=== PATIENT | female | born 1945 | race Caucasian/White ===

== ENCOUNTER 2017-02-21 11:48 | Observation (INO) | payer OTHER ==
[~2017-02-21 11:48] MED LIST: ceFAZolin 2 GM/DEXTROSE 100 ML IV ONE
--- NOTE | 2017-02-21 12:39 | PDHPUP ---
History & Physical Update H&P update statement: This history and physical update is based on an assessment of the patient which was completed after admission or registration (within 24 hours), but prior to the surgery/procedure.
[2017-02-21] MEDS ORDERED: LR 1,000 ML IV ONE (12:44)
[2017-02-21] MEDS ORDERED: LIDOCAINE 1% 2 ML INJ ID PRN (12:44)
--- NOTE | 2017-02-21 13:12 | PDANEPAE ---
ANE History of Present Illness 71 yo female for R foot surgery. ANE Past Medical History - Cardiovascular History Hx Hypertension: No Hx Arrhythmias: No Hx Chest Pain: No Hx Coronary Artery / Peripheral Vascular Disease: No Hx CHF / Valvular Disease: No Hx Palpitations: No Cardiovascular History Comment: OCCAS HEART MURMUR - ASYMPTOMATIC - Pulmonary History Hx COPD: No Hx Asthma/Reactive Airway Disease: No Hx Recent Upper Respiratory Infection: No Hx Oxygen in Use at Home: No Hx Sleep Apnea: No Sleep Apnea Screening Result - Last Documented: Negative - Neurologic History Hx Cerebrovascular Accident: No Hx Seizures: No Hx Dementia: No - Endocrine History Hx Diabetes: No Hypothyroid: Yes Endocrine History Comment: HYPOTHYROID - Renal History Hx Renal Disorders: No - Liver History Hx Hepatic Disorders: Yes Hepatic History Comment: OCCAS GALL BLADDER EPISODES. ACUTE PANCREATITIS 2011 - Neurological & Psychiatric Hx Hx Neurological and Psychiatric Disorders: Yes Neurological / Psychiatric History Comment: migraines - Cancer History Hx Cancer: No - Congenital Disorder History Hx Congenital Disorders: No - GI History GERD: mild Hx Gastrointestinal Disorders: No - Other Health History Other Health History: FIBROMYALGIA 2001. OSTEOARTHRITIS - Chronic Pain History Chronic Pain: Yes (FIBROMYALGIA & ARTHRITIS) - Surgical History Prior Surgeries: LT TOTAL KNEE WITH HARDWARE REMVL DONE PRIOR 12/16/2015. NEURECTOMY L CRANIAL. CARPAL TUNNEL R. HYSTERECTOMY. FOOT SURG ROSETTA. RTC REPAIR L. REVISION RTC L. GANGLION CYST. CATARACT ROSETTA. BUNIONECTOMY, NEUROMA L. BICONDYLAR L PLATEAU FX ORIF ANE Review of Systems Review of Systems: no URI/fever x2 weeks - Exercise capacity METS (RN): 4 METS - Systems Cardiac: Reports: no symptoms Respiratory: Reports: no symptoms ANE Patient History - Allergies Allergies/Adverse Reactions: acetaminophen [From Percocet] Adverse Reaction (Verified 02/21/17 13:08) oxycodone [From Percocet] Adverse Reaction (Verified 02/21/17 13:08) Itching - Home Medications Home Medications: B-Complex with Vitamin C [Super B Complex-Vitamin C] 1 each PO DAILY 07/09/15 [ Last Taken 02/12/17] Cyanocobalamin [Vitamin B12 (*)] 1,000 mcg PO DAILY 07/09/15 [Last Taken ] Gabapentin 1,200 mg PO TID 07/09/15 [Last Taken 02/21/17 10:00] Herbals/Supplements -Info Only 2 ea PO DAILY 07/09/15 [Last Taken 02/12/17] Liothyronine Sodium [Cytomel 25 mcg (*)] 25 mcg PO DAILY 07/09/15 [Last Taken 09:00] MILNACIPRAN HCL [Savella 100 mg] 100 mg PO HS 07/09/15 [Last Taken 02/21/17 10: 00] [place]-3 Fatty Acids [Fish Oil 1000 mg (*)] 1,000 mg PO DAILY 07/09/15 [Last Taken 02/12/17] Omeprazole [Prilosec] 40 mg PO DAILY 07/09/15 [Last Taken 02/21/17 10:00] Sumatriptan Succinate [Imitrex] 100 mg PO PRN PRN 07/09/15 [Last Taken 02/19/17] Tramadol HCl [Ultram ER] 200 mg PO DAILY 07/09/15 [Last Taken 02/21/17 11:00] Hydrocodone/Acetaminophen [[place] 5/325 (*)] 1 each PO Q4-6PRN PRN 12/16/15 [ Last Taken 02/20/17 16:30] DULoxetine HS 01/31/17 [Last Taken 02/20/17 22:00] Refresh Classic Eye Drops PRN 01/31/17 [Last Taken Unknown] - NPO status NPO Status: no food or drink >8 hours - Anes Hx Anes Hx: no prior problems - Smoking Hx Smoking Status: Never smoked Marijuana use: No - Alcohol Use Alcohol Use: Rarely - Family Anes Hx Family Anes Hx: none Family Hx Anesthesia Complications: NEG ANE Labs/Vital Signs - Vital Signs Vital Signs: reviewed preoperatively; see RN documention for details Height: 147.32 cm Weight: 49.895 kg ANE Physical Exam - Airway Neck exam: FROM Mallampati Score: Class 2 Mouth exam: normal dental/mouth exam - Pulmonary Pulmonary: clear to auscultation - Cardiovascular Cardiovascular: regular rate and rhythym - ASA Status ASA Status: III ANE Anesthesia Plan Anesthesia Plan: GA with mask Regional Anesthesia: single shot NB, continuous NB
[2017-02-21] MEDS ORDERED: BUPIVACAINE 0.25% 10 ML SDV ONE (13:17)
[2017-02-21] MEDS ORDERED: BUPIVACAINE 0.5% 30 ML SDV ONE ×2 (13:18→14:02)
[2017-02-21] MEDS ORDERED: fentaNYL 100 MCG/2 ML INJ ONE ×3 (13:20→14:18)
[2017-02-21] MEDS ORDERED: DEXAMETHASONE 4 MG/ML VIAL ONE ×2 (13:20→14:19)
[2017-02-21] MEDS ORDERED: MIDAZOLAM 2 MG/2 ML VIAL IVP ONE (14:04)
[2017-02-21] MEDS ORDERED: PROPOFOL 200 MG/20 ML VIAL ONE (14:18)
[2017-02-21] MEDS ORDERED: ROPIVACAINE 0.2% 1,100 MG in PUMP SET 1 EA NB SCH (14:30)
[2017-02-21] MEDS ORDERED: ceFAZolin 2 GM/DEXTROSE 100 ML IV ONE (14:45)
[2017-02-21] MEDS ORDERED: ESMOLOL HCL 100 MG/10 ML VIAL IV ONE (16:11)
[2017-02-21] MEDS ORDERED: ONDANSETRON 4 MG/2 ML VIAL ONE (16:33)
[2017-02-21] MEDS ORDERED: POVIDONE-IODINE 30 GM OINTTUBE TP ONE (16:51)
[2017-02-21] MEDS ORDERED: HYDROmorphONE/DILAUDID 1 MG/ML INJ IVP PRN (17:19)
[2017-02-21] MEDS ORDERED: HYDROCODONE/APAP 5/325 TAB PO PRN (17:19)
[2017-02-21] MEDS ORDERED: ONDANSETRON 4 MG/2 ML VIAL IVP PRN (17:19)
--- NOTE | 2017-02-21 17:19 | POSTOPPROG ---
Post Op Note Date of Operation: 02/21/17 Surgeon: Ron Medina High Density Talc Coater Operator: Elizabeth Anesthesiologist: Jb Anesthesia: GET(General Endotracheal) Pre-op Diagnosis: R foot djd Post-op Diagnosis: same Indication: above Procedure: R subtalar fusion, 1st mtp fusion 2-4 h toes Inf/Abcess present in the surg proc area at time of surgery?: No EBL: 50-100
[2017-02-21] MEDS ORDERED: NS 1,000 ML IV SCH (17:30)
[2017-02-21] MEDS ORDERED: NALOXONE HCL 0.4 MG/ML INJ IVP PRN (18:24)
[2017-02-21] MEDS ORDERED: fentaNYL 100 MCG/2 ML INJ IVP PRN (18:24)
--- NOTE | 2017-02-21 18:25 | POSTANESTH ---
Post Anesthetic Evaluation Cardiovascular Status: Normal, Stable Respiratory Status: Normal, Stable Level of Consciousness/Mental Status: Can Participate in Eval Pain Control: Adequate, Prn Tx Ordered Nausea/Vomiting Control: Adequate, Prn Tx Ordered Complications Possibly Related to Anesthesia: None Noted
[2017-02-21] MEDS: HYDROmorphONE/DILAUDID 2 MG TAB PO PRN (20:23)
[2017-02-21 21:00] VITALS: RESP 16
[2017-02-21] MEDS: ceFAZolin 2 GM/DEXTROSE 100 ML IV SCH (22:22)
[2017-02-22] MEDS: HYDROmorphONE/DILAUDID 2 MG TAB PO PRN (03:15)
[2017-02-22 04:46] VITALS: TEMP 98.7; O2SAT 95
--- NOTE | 2017-02-22 05:26 | GOP ---
[f rep st] OPERATIVE REPORT DATE OF OPERATION: 02/21/2017 SURGEON: Ron Medina MD RFP WRITER: Vitaly Johnson SA. ANESTHESIA: General. 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 PROCEDURE PERFORMED: 1. Right subtalar fusion. 2. Right 1st MTP fusion. 3. Right 2 and 3 metatarsal capsulotomies. 4. Right 2, 3, and 4 hammertoe corrections. 5. Right 4th toe callus debridement. FINDINGS: SPECIMENS: None. ESTIMATED BLOOD LOSS: 50 mL. INDICATIONS: This is a 71-year-old female with severe foot deformity. I had done a similar procedure on her left foot, she did well, and wishes to have the right corrected. We did discuss the risks of vascular compromise, wound complications, incorrect position of fusion, malunion, nonunion, continued pain , ulcerations, deformity, and she elected to proceed. Informed consent obtained and questions answers. She was marked preoperatively. DESCRIPTION OF PROCEDURE: The patient was taken to the operative suite, after a block administered per Anesthesia. She was given 2 g of Ancef. Sterilely prepped and draped in normal fashion. Time-out was performed verifying the site , side, and location and agreed upon by all members of the team. I debrided with a knife the callus at the tip of her 4th toe and parred his back. I then changed the towels and the instruments. I then did an Esmarch and inflated the tourniquet. Incision was made over the subtalar joint. I dissected down to this and mobilized the joint. This was arthritic in nature. I debrided the joint and prepared this with a combination of chisels, K-wires, saws. I pinned the joint in the position of fusion and checked this radiographically. I and then placed a 7-0 headless compression screw across this after drilling in a 5 0 headless compression derotation screw across the drilling. I liked the final position of the fusion and the implants, and kept this construct. I moved on and exposed the 1st MTP protecting the EHL tendon, and this was extremely arthritic and deformed. I debrided this. I exposed all the hammertoes of the 2, 3, and 4 at the PIP joint as well as performed capsulotomies of the MTP 2 and 3 joints by performing incision there and dissecting down and releasing lateral capsule. I prepared the 1st MTP joint for fusion with matching reamers after pinning to this, then further prepared the joint for fusion. I then resected the hammertoes with the sagittal saw on the proximal phalanx of 2, 3, and mallet toe 4. I then pinned the 2nd toe antegrade then retrograde and checked this fluoroscopically. I then pinned the 1st MTP in the position of fusion, checked this fluoroscopically. Drilled and placed the headless compression screw and checked the skin fluoroscopically. Placed the plate on this. Checked its position. I then placed locking screws distally. I used a compression screw in the slot to move this into some compression proximally, and I then placed locking screws in this to hold the stable construct, and checked this position clinically with a flat plate, as well as radiographically and liked it. I then pinned the 3rd foot 4th toes as well, checking their alignment checked on fluoroscopically the pins. Tourniquet was deflated. Hemostasis was obtained. Was closed with #1 Vicryl, 0 Vicryl, 2-0 Vicryl, 3-0 and 4-0 nylon, as well as 3 -0 Quill in the hind foot, and Dermabond. 2-0 nylon was used for the heel wound. Was placed in a sterile dressing and splint. Taken to PACU in stable condition. IMPLANTS: Arthrex 7.0 and 5.0 headless compression screws, as well as a 3.5 headless compression screw and MTP plate and screws in the MTP joint of the 1st , and K-wires. COMPLICATIONS: None. DRAINS: None. CONDITION: Stable. /[id number]/MODL MTDD
[2017-02-22] MEDS: ceFAZolin 2 GM/DEXTROSE 100 ML IV SCH (05:37)
[2017-02-22] MEDS ORDERED: SUMAtriptan 50 MG TAB PO PRN (06:44)
[2017-02-22 08:14] VITALS: BP 147/56; PULSE 61
[2017-02-22] MEDS ORDERED: ENOXAPARIN 40 MG/0.4 ML SYR SC SCH (09:00)
--- NOTE | 2017-02-22 13:50 | ASMTCMCOM ---
CM Note CM Note Notes: Reviewed chart, PT recommending home with initial supervision and out pt PT. Met w/pt and Rony who will be at home w/pt. Pt does not feel need for hhc and will f/u w/ out pt PT. No other dc needs at this time. Date Signed: 02/22/2017 01:50 PM Electronically Signed By:Porsche Alexandre RN
--- NOTE | 2017-02-22 15:23 | SOAPPROG ---
SOAP Progress Note Assessment/Plan: Assessment: R foot fusion 2-4 h toes Plan: NWB RLE elevat ice Asprin 325 po q day for dvt prophalaxsis 02/22/17 15:21 Subjective: min pain Objective: Vital Signs Temp Pulse Resp BP Pulse Ox 37.1 C 61 16 147/56 H 95 02/22/17 04:42 02/22/17 08:00 02/22/17 08:00 02/22/17 08:00 02/22/17 08:00 02/21/17 02/22/17 02/23/17 05:59 05:59 05:59 Intake Total 3100 Output Total 1170 550 Balance 1930 -550 splint cdi ICD10 Worksheet Patient Problems: Problems Problem Status Onset Total knee replacement status Acute
--- NOTE | 2017-02-22 16:38 | ASDISCHSUM ---
Discharge Information Plan Status:Home with No Needs Medically Cleared to Leave: Discharge Date:02/22/2017 04:28 PM CM D/C Disposition:Home, Routine, Self-Care ADT D/C Disposition:Home, Routine, Self-Care Projected Discharge Date:02/22/2017 04:28 PM Transportation at D/C: Discharge Delay Reason: Follow-Up Date:02/22/2017 04:28 PM Discharge Slot: Final Diagnosis: Placement Information Patient Contact Information Contact Name:JULISA Relationship: Address:[address] City:[place] Alternate Phone: [facility]/Zip Code:[place] [address] Email: Financial Information Financial Class: Primary Plan Desc:MEDICARE OUTPATIENT Primary Plan Number:[id number] Secondary Plan Desc:[employer] Secondary Plan Number:[id number] Assessment Information [facility] CM Progress Note CM Note CM Note Notes: Reviewed chart, PT recommending home with initial supervision and out pt PT. Met w/pt and Rony who will be at home w/pt. Pt does not feel need for hhc and will f/u w/ out pt PT. No other dc needs at this time. Date Signed: 02/22/2017 01:50 PM Electronically Signed By:Porsche Alexandre RN Intervention Information Intervention Type:*PABLITO-Signed Date of Service:02/22/2017 09:35 AM Patient Type:Observation Staff Member:Barb Denis Hours: Discipline: Severity: Comment:
--- NOTE | 2017-02-22 18:03 | GDS ---
[f rep st] DISCHARGE SUMMARY PREOPERATIVE DIAGNOSES: Right foot subtalar degenerative joint disease, 1st metatarsophalangeal dege nerative joint disease, 2 through 4 hammertoes. REASON FOR HOSPITALIZATION: She was admitted after surgery for the above with a right subtalar fusio n, 1st MTP fusion, 2 through 4 hammertoe corrections. She did well. Her pain was controlled and she was able to clear therapy. CONDITION: At discharge was stable. PROCEDURES: Are as above. CONSULTING PHYSICIANS: None. DISPOSITION: Home. DIET: She is on a regular diet. DISCHARGE MEDICATIONS: She is sent home with prescriptions for hydrocodone and Ultram for pain as we ll as instructions to take an aspirin 325 mg p.o. daily for 4 weeks for DVT prophylaxis. DISCHARGE INSTRUCTIONS: She will wear MARII hose. She will ice and elevate her leg. She will come ba ck to the clinic in a week to see me. She will call or come back to the hospital if she has any ches t pain, shortness of breath or other concerns. /[id number]/MODL
== END 2017-02-22 16:28 | disposition home or self-care (01) ==
LOC: FSGY 11:48 → F3N 17:19
PROVIDERS: ADMIT Orthopaedic Surgery; ATTEND Orthopaedic Surgery
PROC: 0QBQ0ZZ Excision of Right Toe Phalanx, Open Approach (ICD-10-PCS; principal; 2017-02-21 13:00)
PROC: 0SGH04Z Fusion of Right Tarsal Joint with Internal Fixation Device, Open Approach (ICD-10-PCS; principal; 2017-02-21 13:00)
PROC: 0SGM04Z Fusion of Right Metatarsal-Phalangeal Joint with Internal Fixation Device, Open Approach (ICD-10-PCS; principal; 2017-02-21 13:00)
DX: M19.071 Primary osteoarthritis, right ankle and foot (principal); M20.11 Hallux valgus (acquired), right foot; M20.41 Other hammer toe(s) (acquired), right foot; L84 Corns and callosities; E03.9 Hypothyroidism, unspecified
CPT/HCPCS: 28285; 28725; 28750; 97161; 97165; C1713; C1769; G8978; G8979; G8980; G8987; G8988; G8989; J0690; J1100; J1650; J2250; J2405; J2704; J2795; J3010

== ENCOUNTER 2018-08-31 05:51 | Observation (INO) | payer OTHER ==
[2018-08-31] MEDS ORDERED: LR 1,000 ML IV ONE (06:13)
[2018-08-31] MEDS ORDERED: fentaNYL 100 MCG/2 ML INJ ONE (06:41)
--- NOTE | 2018-08-31 06:41 | PDANEPAE ---
ANE History of Present Illness right foot pain ANE Past Medical History - Cardiovascular History Hx Hypertension: No Hx Arrhythmias: No Hx Chest Pain: No Hx Coronary Artery / Peripheral Vascular Disease: No Hx CHF / Valvular Disease: No Hx Palpitations: No Cardiovascular History Comment: OCCAS HEART MURMUR - ASYMPTOMATIC - Pulmonary History Hx COPD: No Hx Asthma/Reactive Airway Disease: No Hx Recent Upper Respiratory Infection: No Hx Oxygen in Use at Home: No Hx Sleep Apnea: No Sleep Apnea Screening Result - Last Documented: Negative - Neurologic History Hx Cerebrovascular Accident: No Hx Seizures: No Hx Dementia: No - Endocrine History Hx Diabetes: No Hypothyroid: Yes Hyperthyroid: No Obesity: no Endocrine History Comment: HYPOTHYROID - Renal History Hx Renal Disorders: No - Liver History Hx Hepatic Disorders: Yes Hepatic History Comment: OCCAS GALL BLADDER EPISODES. ACUTE PANCREATITIS 2011 - Neurological & Psychiatric Hx Hx Neurological and Psychiatric Disorders: Yes Neurological / Psychiatric History Comment: migraines - Cancer History Hx Cancer: No - Congenital Disorder History Hx Congenital Disorders: No - GI History Hx Gastrointestinal Disorders: Yes - Other Health History Other Health History: FIBROMYALGIA 2001. OSTEOARTHRITIS - Chronic Pain History Chronic Pain: Yes (FIBROMYALGIA & ARTHRITIS) - Surgical History Prior Surgeries: LT TOTAL KNEE WITH HARDWARE REMVL DONE PRIOR 12/16/2015. NEURECTOMY L CRANIAL. CARPAL TUNNEL R. HYSTERECTOMY. FOOT SURG RSOETTA. RTC REPAIR L. REVISION RTC L. GANGLION CYST. CATARACT ROSETTA. BUNIONECTOMY, NEUROMA L. BICONDYLAR L PLATEAU FX ORIF ANE Review of Systems Review of systems is: negative Review of Systems: - Exercise capacity Exercise capacity: >=4 METS METS (RN): 4 METS ANE Patient History - Allergies Allergies/Adverse Reactions: acetaminophen [From Percocet] Allergy (Verified 02/21/17 14:07) morphine Allergy (Verified 08/31/18 06:18) oxycodone [From Percocet] Allergy (Verified 02/21/17 14:07) Itching - Home Medications Home medications: home medication list seen and reviewed Home Medications: B-Complex with Vitamin C [Super B Complex-Vitamin C] 1 each PO DAILY 07/09/15 [ Last Taken 08/30/18] Cyanocobalamin [Vitamin B12 (*)] 1,000 mcg PO DAILY 07/09/15 [Last Taken ] Gabapentin 1,200 mg PO TID 07/09/15 [Last Taken 08/30/18] Herbals/Supplements -Info Only 2 ea PO DAILY 07/09/15 [Last Taken 02/12/17] Liothyronine Sodium [Cytomel 25 mcg (*)] 25 mcg PO DAILY 07/09/15 [Last Taken ] MILNACIPRAN HCL [Savella 100 mg] 100 mg PO DAILY 07/09/15 [Last Taken 08/30/18] [place]-3 Fatty Acids [Fish Oil 1000 mg (*)] 1,000 mg PO DAILY 07/09/15 [Last Taken 08/30/18] Omeprazole [Prilosec] 40 mg PO DAILY 07/09/15 [Last Taken 08/24/18] Sumatriptan Succinate [Imitrex] 100 mg PO PRN PRN 07/09/15 [Last Taken 08/28/18] DULoxetine [Cymbalta 30 MG (*)] 90 mg PO HS 08/15/18 [Last Taken 08/30/18] Hydrocodone/APAP 5/325 [[place] 5/325 (*)] 1 each PO DAILY PRN 08/15/18 [Last Taken 08/30/18] cycloSPORINE 0.05% [Restasis Opht Drops(*)] 1 drop EACHEYE BID 08/15/18 [Last Taken 08/31/18] - NPO status NPO Status: no food or drink >8 hours NPO Since - Liquids (Date): 08/30/18 NPO Since - Liquids (Time): 23:00 NPO Since - Solids (Date): 08/30/18 NPO Since - Solids (Time): 19:00 - Anes Hx Anes Hx: no prior problems - Smoking Hx Smoking Status: Never smoked - Family Anes Hx Family Hx Anesthesia Complications: NEG ANE Labs/Vital Signs - Vital Signs Vital Signs: reviewed preoperatively; see RN documention for details Blood Pressure: 143/75 Heart Rate: 76 Respiratory Rate: 18 O2 Sat (%): 97 Height: 149.86 cm Weight: 50.802 kg ANE Physical Exam - Airway Neck exam: FROM Mallampati Score: Class 2 Mouth exam: normal dental/mouth exam - Pulmonary Pulmonary: no respiratory distress - Cardiovascular Cardiovascular: regular rate and rhythym - ASA Status ASA Status: II ANE Anesthesia Plan Anesthesia Plan: general endotracheal anesthesia Regional Anesthesia: continuous NB (popliteal catheter)
[2018-08-31] MEDS ORDERED: ROPIVACAINE HCL 150 MG/30 ML INJ ONE (06:42)
[2018-08-31] MEDS ORDERED: THROMBIN (BOVINE) 5,000 UNIT VIAL TP ONE (06:58)
[2018-08-31] MEDS ORDERED: ceFAZolin 2 GM/DEXTROSE 100 ML IV ONE (06:58)
--- NOTE | 2018-08-31 06:58 | PDHPUP ---
History & Physical Update H&P update statement: This history and physical update is based on an assessment of the patient which was completed after admission or registration (within 24 hours), but prior to the surgery/procedure. H&P update: H&P reviewed & patient examined, no change in patient's condition since H&P completed
[2018-08-31] MEDS ORDERED: HEPARIN 10,000 UNIT/10 ML MDV (1,000 UNIT/ML) ONE (07:08)
[2018-08-31] MEDS ORDERED: PROPOFOL 200 MG/20 ML VIAL ONE (07:13)
[2018-08-31] MEDS ORDERED: ROCURONIUM 50 MG/5 ML VIAL ONE (07:14)
[2018-08-31] MEDS ORDERED: DEXAMETHASONE 4 MG/ML VIAL ONE (08:57)
[2018-08-31] MEDS ORDERED: ONDANSETRON 4 MG/2 ML VIAL ONE ×2 (08:57→09:34)
[2018-08-31] MEDS ORDERED: ROPIVACAINE 0.2% 1,100 MG in PUMP SET 1 EA NB SCH (09:00)
[2018-08-31] MEDS ORDERED: MEPERIDINE 25 MG/0.5 ML AMP IVP PRN (09:06)
[2018-08-31] MEDS ORDERED: PROMETHAZINE HCL 25 MG/ML INJ IVP PRN (09:06)
[2018-08-31] MEDS ORDERED: LR 500 ML IV PRN (09:06)
[2018-08-31] MEDS ORDERED: METOCLOPRAMIDE 10 MG/2 ML VIAL IVP PRN (09:06)
[2018-08-31] MEDS ORDERED: ALBUTEROL 3 ML DEYVIAL IH PRN (09:06)
[2018-08-31] MEDS ORDERED: DEXAMETHASONE 4 MG/ML VIAL IVP PRN (09:06)
[2018-08-31] MEDS ORDERED: ONDANSETRON 4 MG/2 ML VIAL IVP PRN ×2 (09:06→09:32)
[2018-08-31] MEDS ORDERED: LABETALOL HCL 5 MG/ML 20 ML MDV IVP PRN (09:06)
[2018-08-31] MEDS ORDERED: HYDROmorphONE/DILAUDID 1 MG/ML INJ IVP PRN (09:06)
[2018-08-31] MEDS ORDERED: NALOXONE HCL 0.4 MG/ML INJ IVP PRN (09:06)
[2018-08-31] MEDS ORDERED: DIAZEPAM 10 MG/2 ML SYR IVP PRN (09:06)
[2018-08-31] MEDS ORDERED: fentaNYL 100 MCG/2 ML INJ IVP PRN (09:06)
[2018-08-31] MEDS ORDERED: HYDROCODONE/APAP 5/325 TAB PO PRN (09:32)
[2018-08-31] MEDS ORDERED: ONDANSETRON DISINTEGRATING 4 MG TAB PO PRN (09:32)
[2018-08-31] MEDS ORDERED: PROMETHAZINE HCL 25 MG/ML INJ ONE (09:34)
--- NOTE | 2018-08-31 10:36 | GOP ---
[f rep st] OPERATIVE REPORT DATE OF OPERATION: 08/31/2018 SURGEON: Ron Medina MD [employer]ERTY INS[employer]ANCE CLAIMS EXAMINER: Wang Suggs MD ANESTHESIA: General with indwelling popliteal block for postop pain control. PREOPERATIVE DIAGNOSIS: Right subtalar nonunion, right subtalar retained hardware. POSTOPERATIVE DIAGNOSIS: Right subtalar nonunion, right subtalar retained hardware. PROCEDURE PERFORMED: 1. Right bone marrow aspirate of iliac crest. 2. Right subtalar hardware removal. 3. Right subtalar revision fusion with bone graft and bone marrow aspirate. FINDINGS: SPECIMENS: None. ESTIMATED BLOOD LOSS: 60 cc. INDICATIONS: This is a female who I previously performed bilateral subtalar fusions on. She went on not to fuse the right. We obtained multiple CT scans showing it did not heal. She elected for revi dony surgery. We discussed using bone marrow aspirate and allograft to augment this. We discussed n onoperative treatment as well, but she failed this. She was consented. We discussed risks of anothe r nonunion, continued pain, joint problems, hardware problems and further fusions, arthritis, complic ations with the bone marrow aspirate, including blood clot, vessel injury, nerve injury, and she elec anna to proceed. Informed consent obtained. All questions answered. She was marked preoperatively. DESCRIPTION OF PROCEDURE: She was taken to the operative suite and anesthesia was induced, block adm inistered preop. I prepped out her posterior iliac crest and aspirated 60 cc of bone marrow aspirate out of her posterior ilium at the PSIS. This was then Dermabonded and sealed. We positioned her, p repped and draped in normal fashion. Another time-out was performed verifying this patient, side, si te, location; there was agreement by everyone on the team. I made the old incision and exposed the subtalar joint. This was clearly not healed. I then made th e incision in the heel and extended this. I found the old screws with guidewires and removed these. I opened up and mobilized subtalar joint. There was only scant amount of fibrous tissue, but this w as debrided. I re-prepped the joint, taking care to be extra thorough and removing all subchondral b one. There was no intra-articular cartilage was left from prior. I then fenestrated the bone. I th en repositioned the joint, held this compression, opened the joint back up, and placed the bone spong e from Arthrex with insertion of iliac crest aspirate, as well as a cc of bone graft that had been so aked in iliac crest aspirate. We reduced the joint, placed guide pins across this, checked this fluo roscopically, drilled and placed a 7-hole headless compression screws, achieving compression of the j oint and good stable fixation. I then added another cc of bone graft to the lateral edge in sinus ta rsi. She was closed with 0 Vicryl, 2-0 Vicryl, 3-0 Quill, and Dermabond. The rest of the iliac jean t was aspirated injected in the subtalar joint and sinus tarsi after closure. She was then taken to PACU in stable condition in splint. IMPLANTS: Two Arthrex 7.0 headless compression screws. COMPLICATIONS: None. DRAINS: None. CONDITION: Stable. /[id number]/MODL
[2018-08-31] MEDS ORDERED: SUMAtriptan 50 MG TAB PO PRN (10:45)
[2018-08-31] MEDS: IBUPROFEN 600 MG TAB PO SCH ×2 (17:25→22:50)
[2018-08-31] MEDS: GABAPENTIN 400 MG CAP PO SCH ×2 (17:25→22:49)
[2018-08-31] MEDS ORDERED: DULoxetine 30 MG CAP PO SCH (21:00)
[2018-08-31] MEDS: cycloSPORINE 0.05% 30 DROPERETTE/BOX EACHEYE SCH (22:49)
[2018-08-31] MEDS: NYSTATIN SUSP 500000 UNIT/5 ML UD LIQ PO SCH (22:53)
[2018-09-01] MEDS: NYSTATIN SUSP 500000 UNIT/5 ML UD LIQ PO SCH ×2 (05:22→10:30)
[2018-09-01] MEDS ORDERED: PANTOPRAZOLE SODIUM 40 MG TAB PO SCH (09:00)
[2018-09-01] MEDS ORDERED: Milnacipran Hcl [Savella] 100 MG PO SCH (09:00)
[2018-09-01] MEDS ORDERED: B COMPLEX WITH VITAMIN C PO SCH (09:00)
[2018-09-01] MEDS ORDERED: LIOTHYRONINE SODIUM 25 MCG TAB PO SCH (09:00)
[2018-09-01] MEDS ORDERED: CYANO/VITAMIN B12 1000 MCG TAB PO SCH (09:00)
[2018-09-01] MEDS: GABAPENTIN 400 MG CAP PO SCH (10:30)
[2018-09-01] MEDS: IBUPROFEN 600 MG TAB PO SCH (10:30)
--- NOTE | 2018-09-01 10:52 | SOAPPROG ---
SOAP Progress Note Assessment/Plan: Assessment:minimal pain Plan:continue popliteal catheter on discharge, discharge instructions given 09/01/18 10:51 Objective: Vital Signs Temp Pulse Resp BP Pulse Ox 37.0 C 86 17 142/77 H 98 09/01/18 07:04 09/01/18 07:04 09/01/18 07:04 09/01/18 07:04 09/01/18 07:04 08/31/18 09/01/18 09/02/18 05:59 05:59 05:59 Intake Total 2500 Output Total 3860 600 Balance -1360 -600 - Time Spent With Patient Time Spent With Patient: 5 min - Pending Discharge Pending Discharge Within 24 Hours: Yes Pending Discharge Date: 09/02/18 Pending Discharge Time: 11:00 Physical Exam - Physical Exam General Appearance: WD/WN EENT: PERRL/EOMI Neck: non-tender, full range of motion, supple, normal inspection Cardiac/Chest: normal peripheral pulses, regular rate, rhythm Pelvic Exam: deferred Rectal: deferred Skin: normal color, warm/dry Lymphatic: no adenopathy Extremities: normal range of motion, non-tender, normal inspection, normal capillary refill Neuro/Psych: no motor/sensory deficits, alert, normal mood/affect, oriented x 3 ICD10 Worksheet Patient Problems: Problems Problem Status Onset Total knee replacement status Acute
[2018-09-01 11:15] VITALS: BP 127/63
[2018-09-01] MEDS: cycloSPORINE 0.05% 30 DROPERETTE/BOX EACHEYE SCH (12:05)
--- NOTE | 2018-09-01 14:05 | SOAPPROG ---
REINIER Progress Note Assessment/Plan: Assessment: 73 y/o female s/p revision of right subtalar joint fusion. Plan: D/C planning today indwelling catheter to stay per anesthesia NWB on RLE with PT/OT Pain Control DVT PPx Jamil Stockings and ASA 81mg 09/01/18 14:00 Subjective: 73 y/o female who is POD#1 from a Right subtalar revision. She is overall feeling wonderful and is anxious to go home today. She has no complaints at this time and states she has been feeling well since she was in the PACU. She is not having any pain and denies any fever, chills, SOB, CP, abdominal pain, nausea, vomiting. Objective: 73 y/o female POD#1 AOx4 NAD Dressing is in place which is clean, dry and intact. Catheter pump in place which shows no signs of any erythema, ecchymosis. Dressing surrounding is C/D/I able to wiggle toes <2 capillary refill Neurologically intact to light sensation Negative contralateral Homans Vital Signs Temp Pulse Resp BP Pulse Ox 37.0 C 88 16 127/63 H 95 09/01/18 11:14 09/01/18 11:14 09/01/18 11:14 09/01/18 11:14 09/01/18 11:14 08/31/18 09/01/18 09/02/18 05:59 05:59 05:59 Intake Total 2500 500 Output Total 3860 600 Balance -1360 -100 - Time Spent With Patient Time Spent With Patient: 20 minutes were spent with the patient. Over 50% of time was for discussion of plan including post-operative course and discharge. - Pending Discharge Pending Discharge Within 24 Hours: Yes Pending Discharge Date: 09/02/18 Pending Discharge Time: 11:00 ICD10 Worksheet Patient Problems: Problems Problem Status Onset Total knee replacement status Acute
--- NOTE | 2018-09-01 14:11 | PDDCSUM ---
Discharge Summary Discharge Summary: 73 y/o female who has seen Dr Medina in the outpatient office for right heel pain and difficulty with ambulation. Patient had underwent a previous subtalar fusion which on advanced imaging showed signs of a non complete union. She underwent a risk and benefit analysis and signed consent to undergo a right subtalar revision fusion. She underwent this procedure on 08/31/2018. She tolerated it well and was transferred to the PACU and then the [facility] floor. She at the time had an indwelling catheterplaced for a nerve block. She has had PT/OT, IV and PO pain medication and 24 hours of IV abx. She is currently stable orthopedically and medically for d/c to home. She will be NWB on her RLE at home. Dressing stays in place until f/u appointment. She understands she will be on asa for dvt ppx. She will be d/c to home, self care.
--- NOTE | 2018-09-05 10:52 | POSTANESTH ---
Post Anesthetic Evaluation Cardiovascular Status: Normal, Stable Respiratory Status: Normal, Stable Level of Consciousness/Mental Status: Can Participate in Eval Pain Control: Adequate, Prn Tx Ordered Nausea/Vomiting Control: Adequate, Prn Tx Ordered Complications Possibly Related to Anesthesia: None Noted (for surgery on 08/31/18 )
== END 2018-09-01 14:44 | disposition home or self-care (01) ==
LOC: F3N 05:51
PROVIDERS: ADMIT Orthopaedic Surgery; ATTEND Orthopaedic Surgery
PROC: 0SPH04Z Removal of Internal Fixation Device from Right Tarsal Joint, Open Approach (ICD-10-PCS; principal; 2018-08-31 07:15)
PROC: 07DR3ZZ Extraction of Iliac Bone Marrow, Percutaneous Approach (ICD-10-PCS; principal; 2018-08-31 07:15)
PROC: 0SGH0KZ Fusion of Right Tarsal Joint with Nonautologous Tissue Substitute, Open Approach (ICD-10-PCS; principal; 2018-08-31 07:15)
DX: S92.191 Other fracture of right talus (principal); M19.071 Primary osteoarthritis, right ankle and foot; X58.XXXA Exposure to other specified factors, initial encounter; E03.9 Hypothyroidism, unspecified
CPT/HCPCS: 28725; 38232; 97161; C1713; C1762; J0690; J1100; J1644; J2405; J2550; J2704; J2795; J3010